=== PATIENT | male | born 1995 | race Caucasian/White ===

== ENCOUNTER 2025-07-01 10:35 | Emergency (ER) | payer SELFPAY ==
--- NOTE | 2025-07-01 10:39 | ED.GENADULT ---
HPI - General Adult General Chief complaint: Unspecified Stated complaint: Hernia Time Seen by Provider: 07/01/25 10:43 Source: patient, RN notes reviewed and old records reviewed Mode of arrival: ambulatory Limitations: no limitations History of Present Illness HPI narrative: 29-year-old male presents to the [facility] with concerns of a hernia to the left groin, left testicle area. Patient states that he has had the hernia for a while, currently wearing a hernia belt. Over the last 3-4 days has been lifting at work, noticed that he cannot reduce the hernia any more. States that he has not ever seek medical treatment. Patient denies any nausea or vomiting. Was concerned that he had lost weight recently. Unable to reproduce pain, not able to reduce the hernia Treatments prior to arrival: other (Hernia belt) Related Data Home Medications ?Medication ?Instructions ?Recorded ?Confirmed ?Last Taken ?Type No Home Medications 07/01/25 07/01/25 Unknown History Allergies Allergy/AdvReac Type Severity Reaction Status Date / Time No Known Allergies Allergy Verified 07/01/25 10:41 Review of Systems Review of Systems: All systems reviewed & are unremarkable except as noted in HPI and below Constitutional: Constitutional: Reports no additional constitutional complaints Cardiovascular: Cardiovascular: Reports no additional cardiovascular complaints, Denies chest pain and Denies dyspnea Respiratory: Respiratory: Reports no additional respiratory complaints, Denies chest congestion, Denies cough and Denies dyspnea Gastrointestinal: Gastrointestinal: Reports as per HPI, Denies abdominal pain, Denies change in bowel habits, Denies diarrhea, Denies nausea and Denies vomiting Genitourinary: Genitourinary: Reports as per HPI, Denies genital pain, Denies dysuria, Denies flank pain and Reports scrotal swelling Musculoskeletal: Musculoskeletal: Reports no additional musculoskeletal complaints Integumentary/Breasts: Skin/Breast: Reports system reviewed and no additional complaints, except as docu PMFSH Comments At the time of my signature, I reviewed and agree with the nursing past medical, surgical, social, and family history. There is no relevant family history pertinent to the patient complaint. Exam Const: General: cooperative, healthy appearing, comfortable, no acute distress, well developed, alert and well nourished Nutritional Appearance: well nourished Orientation/consciousness: patient oriented x3 Limitations: no limitations HENMT: Head: normal to inspection Eyes: General: appearance normal, both eyes and all related structures Alignment and Position: alignment normal Neck: Neck: normal visual inspection, full ROM, no lymphadenopathy and no meningeal signs Chest: Chest palpation & inspection: normal inspection of the chest Resp: Effort & Inspection: normal respiratory effort and able to speak in complete sentences Cardio: Rate: regular rate GI: GI Palp: No abdominal tenderness Auscultation: normal bowel sounds Abdomen image:  1. Hernia, not report do simple, right scrotal area involved No redness, denies pain Skin: General skin exam: normal color and no rashes or lesions noted Neuro: General: patient oriented x3, gait normal, moves all extremities and no meningeal signs Cognition (Neuro): normal cognition Speech: normal speech Gait exam (Neuro): Normal gait present Extrem: General: normal to inspection, full ROM, capillary refill normal and normal gait Psych: Appearance: grossly normal and well kempt Mental Status: mental status grossly normal Speech and movement: Normal speech and movement present and Clear speech present Affect: normal affect Attitude: cooperative Course Course Level of Care: Express Care Visit Vital Signs Vital signs: Vital Signs Temperature 99.1 F 07/01/25 10:46 Pulse Rate 100 07/01/25 10:46 Respiratory Rate 18 07/01/25 10:46 Blood Pressure 140/90 07/01/25 10:46 Pulse Oximetry 98 07/01/25 10:46 Temperature 99.1 F 07/01/25 10:46 Pulse Rate 100 07/01/25 10:46 Respiratory Rate 18 07/01/25 10:46 Blood Pressure 140/90 07/01/25 10:46 Pulse Oximetry 98 07/01/25 10:46 Reviewed Medical Decision Making [facility] Narrative Medical decision making narrative: Patient sitting comfortably in exam room. Patient is nontoxic, vitals are stable. Patient presents with concerns for hernia that he has never been seen for in the past. States that it is getting bigger, not reducible. Discussed with patient the concerns for further imaging, testing which he is declining transfer at this time. Patient most concerned with cost of visit as well as additional testing and treatment Discussed risks of it going untreated such as but not limited to sepsis, loss of testicle, uncontrolled pain Patient was given phone numbers for follow-up. Discharge instructions reviewed with patient, as well as provided in writing per nursing staff. The instructions also include specific and strict return/GO TO THE ER as well as f/u information. All questions have been answered, and the patient deny any further questions with discharge and discharge plan. Some parts of this dictation were generated by voice recognition software and may contain typographical and/or grammatical inaccuracies. Differential Diagnosis Differential Diagnosis: Inguinal hernia Medical Records Medical records reviewed: Yes I reviewed the external patient's medical records. Vital Signs Vital Signs: Vital Signs Temperature 99.1 F 07/01/25 10:46 Pulse Rate 100 07/01/25 10:46 Respiratory Rate 18 07/01/25 10:46 Blood Pressure 140/90 07/01/25 10:46 Pulse Oximetry 98 07/01/25 10:46 Temperature 99.1 F 07/01/25 10:46 Pulse Rate 100 07/01/25 10:46 Respiratory Rate 18 07/01/25 10:46 Blood Pressure 140/90 07/01/25 10:46 Pulse Oximetry 98 07/01/25 10:46 Reviewed Lab Data Lab results reviewed: Yes I reviewed the patient's lab results. Labs: Reviewed Critical Care Time Critical Care Time Critical Care Time: No Discharge Plan Discharge Clinical Impression: Hernia, inguinal, right Patient Disposition: Home Condition: Stable Instructions: Antibiotic Form, Inguinal Hernia (ED) Additional Instructions: It is recommended highly that you seek additional treatment as soon as possible. Hernias if left untreated can lead to more serious health issues such as uncontrolled pain and even of the surrounding tissue Follow-up with primary care provider today your blood pressure was 149/90 Follow-up with a general surgeon For further evaluation either see your primary as soon as possible or go directly to the emergency room Patient Language: Khmer Prescriptions: No Action No Home Medications Follow-up/Referrals: PHYSICIAN,HOSPICE PLAN ADMINISTRATOR [Primary Care Provider] - Esvin Colon MD [Physician] - Derrek Kruger DO [Physician] - Time of Disposition: 10:58
[2025-07-01 10:46] VITALS: BP 140/90; PULSE 100; RESP 18; TEMP 37.3; O2SAT 98
== END 2025-07-01 11:02 | disposition home or self-care (01) ==
PROVIDERS: Emergency Provider Nurse Practitioner
DX: K40.90 Unilateral inguinal hernia, without obstruction or gangrene, not specified as recurrent (principal)
CPT/HCPCS: 99202; G0463